=== PATIENT | male | born 1950 | race Two or more races ===

== ENCOUNTER → 2024-04-30 | Outpatient (CLI) | payer OTHER ==
[2024-05-04 05:08] LABS: Vitamin B1, Whole Blood 143.8 nmol/L (66.5-200.0)
== END | disposition home or self-care (01) ==
LOC: LAB 12:28
PROVIDERS: ATTEND Internal Medicine
DX: G62.9 Polyneuropathy, unspecified (principal)
CPT/HCPCS: 82306; 82607; 84207; 84425